=== PATIENT | male | born 2005 | race Caucasian/White ===

== ENCOUNTER 2024-07-28 12:43 | Emergency (ER) | payer BC ==
[2024-07-28] MEDS ORDERED: Ondansetron ODT 4 MG TAB ONE (13:26)
[2024-07-28 14:03] LABS: #Basophils Less than 0.03 10x3/uL (0.0-0.2); #Eosinophils Less than 0.03 10x3/uL (0.0-0.5); #Monocytes 0.51 10x3/uL (0.0-1.1); #Neutrophils 7.55 10x3/uL (1.5-8.4); %Basophils 0.1 % (0.0-2.0); %Eosinophils 0.1 % (0.0-6.0); %Lymphocytes 10.1 % (18.0-47.0); %Monocytes 5.7 % (0.0-10.0); %Neutrophils 83.7 % (40.0-75.0); Hematocrit 42.1 % (38.8-50.0); Hemoglobin 15.6 g/dL (13.5-17.5); Mean Corpuscular HGB CONC 37.1 g/dL (32.0-36.0); Mean Corpuscular Hemoglobin 32.2 pg (27.0-33.0); Mean Corpuscular Volume 86.8 fL (81.2-95.1); Mean Platelet Volume 9.9 fL (7.4-10.4); Platelet Count 179 10x3/uL (150-450); RBC Distribution Width 12.3 % (11.5-14.5); Red Blood Cell (RBC) Count 4.85 10x6/uL (4.32-5.72); White Blood Cell (WBC) Count 9.02 10x3/uL (3.5-10.5)
[2024-07-28 14:19] LABS: ALT (SGPT) 12 U/L (Less than 45); AST (SGOT) 26 U/L (11-34); Albumin 4.6 g/dL (3.1-4.5); Alkaline Phosphatase 66 U/L (40-110); Anion Gap 11 mmol/L (10-20); BUN (Urea Nitrogen) 15 mg/dL (8.9-20.6); Bilirubin, Total 1.2 mg/dL (0.3-1.2); Calc. Creatinine Clearance 0 mL/min (70-130); Calcium 9.1 mg/dL (7.8-10.44); Carbon Dioxide 27 mmol/L (22-29); Chloride 101 mmol/L (98-107); Estimated GFR 118; Globulin 2.4 g/dL (2.4-3.5); Glucose 104 mg/dL (70-105); Magnesium 1.8 mg/dL (1.6-2.6); Sodium 135 mmol/L (136-145)
== END 2024-07-28 15:08 | disposition home or self-care (01) ==
LOC: CSHERS 12:43
DX: R42 Dizziness and giddiness (principal); R11.0 Nausea; R29.700 NIHSS score 0
CPT/HCPCS: 36415; 80053; 83735; 84443; 85025; 93005; 99284; Q0162